=== PATIENT | female | born 1965 | race Caucasian/White ===

== ENCOUNTER 2016-06-02 21:28 | Emergency (ER) | payer SELFPAY ==
--- NOTE | 2016-06-02 23:46 | ED ORDER SUMMARY ---
..... Patient: NERI SANON OrderSheet [facility] VisitID: [id number] [place] [address] 50y, F Registration Date/Time: 06/02/2016 ORDER SHEET Weight: 72.5 kg (stated) Allergies: No Known Drug Allergy GENERAL ORDERS: CBC w Diff Urgent (22:12 06/02/2016 [place] GUZMAN) (Ack 22:15 Staci) (22:52 JRomanelli R.N.) CMP Urgent (22:12 06/02/2016 [place] GUZMAN) (Ack 22:15 Staci) (22:52 omanelli R.N.) UA-Culture if indicated Urgent (22:12 06/02/2016 [place] GUZMAN) (Ack 22:15 Staci) (23:23 Elli R.N.) Urine Urgent (22:12 06/02/2016 [place] GUZMAN) (Ack 22:15 Staci) (23:23 omanelli R.N.) Amylase Urgent (22:12 06/02/2016 [place] GUZMAN) (Ack 22:15 Staci) (22:52 omanelli R.N.) Lipase Urgent (22:12 06/02/2016 [place] GUZMAN) (Ack 22:15 Staci) (22:52 omanelli R.N.) Abd Series 2V Abd/1V Chest Urgent (23:24 06/02/2016 [place] GUZMAN) (Ack 23:25 Marcelina) (23:32 Binh) MEDICATION ORDERS: IV FLUIDS: IV NS : initial bolus none -, then 1000 mL/hr (NOW) (22:06 06/02/2016 Elli R.N. verbal order read back to [place] GUZMAN) (22:08 Elli R.N.) Zofran IV 4 mg (NOW) (22:08 06/02/2016 omanelli R.N. verbal order read back to [place] GUZMAN) (22:09 omanelli R.N.) IV#2 NS : initial bolus none -, then 1000 mL/hr (NOW) (22:58 06/02/2016 JRomanelli R.N. verbal order read back to [place] GUZMAN) (23:01 Elli Dick) ORDER SHEET NOTES: [Electronically signed by Rosendo Almendarez R.N. (00:49 06/03/2016)] [Electronically signed by Lux Badillo MD (00:58 06/03/2016)] [Electronically locked/signed by Rosendo Almendarez R.N. (00:49 06/03/2016)]
--- NOTE | 2016-06-02 23:46 | ED CLINICAL REPORT ---
Clinical Report - Physicians/Mid Levels [facility] [address] [place] [address] 06/02/2016 21:29 Patient: NERI SANON Time Seen: 21:47. Arrived- By private vehicle. Historian- patient. HISTORY OF PRESENT ILLNESS Chief Complaint: ABDOMINAL PAIN. This started several days ago and is still present. It was gradual in onset and has been intermittent and waxing/waning. At its maximum, severity described as severe. When seen in the E.D., severity described as moderate. It is described as cramping and diffuse and it is described as generalized in location. The patient has had nausea. She has had vomiting (today). The vomiting has occurred only once. No blood-tinged emesis or coffee-grounds emesis. (she says that she normally has bowel movements daily however she has not had one for the past several days. She also says that she has not been drinking much in the way of water). REVIEW OF SYSTEMS The patient has had constipation and constipation. Last bowel movement- he says that she has not had a normal bowel movement for several days. She passed a small amount of stool yesterday. No chills, fever, sweats, calf pain or chest pain. No cough, difficulty breathing, pedal edema, palpitations or black stools. No bloody stools, diarrhea or urinary problems. All systems otherwise negative, except as recorded above. PAST HISTORY Problems: Lumbar Strain. Back Pain. Additional Surgeries: . Tubal Ligation. 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 Medications: None. Allergies: No Known Drug Allergy. SOCIAL HISTORY Current every day heavy tobacco smoker (cigarette)- less than 1 pack per day. No alcohol use or drug use. FAMILY HISTORY Denies family medical history. ADDITIONAL NOTES The nursing notes have been reviewed. PHYSICAL EXAM Vital Signs: 06/02/2016 21:39 BP: 125/83. HR: 104. RR: 20. O2 saturation: 99%. Temp: 97.9 F. Pain level now: 7/10. Have been reviewed. Appearance: Alert. Eyes: Pupils equal, round and reactive to light. ENT: Pharynx normal. Neck: Normal inspection. Neck supple. CVS: Normal heart rate and rhythm. Heart sounds normal. Respiratory: No respiratory distress. Breath sounds normal. Abdomen: Soft. Mild tenderness in the left upper quadrant. Bowel sounds normal. No organomegaly. No mass. Back: Normal inspection. No CVA tenderness. Skin: Skin warm and dry. Normal skin color. Normal skin turgor. Extremities: Extremities exhibit normal ROM. No calf tenderness. No lower extremity edema. LABS, X-RAYS, AND EKG KUB: (IMPRESSION: 1. Negative acute abdominal series. Moderate stool.). Laboratory Tests: CBC w Diff: (JOSE: 06/02/2016 21:50) ( MsgRcvd 06/02/2016 22:23) Final results Test Result Flag Units (Reference) WHITE BLOOD COUNT 6.8 K/uL (4.5-11.5) RED BLOOD COUNT 5.35 H M/uL (4.00-5.20) HEMOGLOBIN 15.8 gm/dL (12.0-16.0) HEMATOCRIT 47.6 H % (36.0-46.0) MEAN CELL VOLUME 89 fL (80-100) MEAN CORPUSCULAR HGB 30 pg (26-34) MEAN CORPUSCULAR HGB CONC 33 g/dL (31-37) RED CELL DISTRIBUTION WIDTH 12.1 % (11.6-14.8) PLATELET COUNT 158 K/uL (150-400) NEUTROPHIL % 91.0 H % (50-75) LYMPH % 3.8 L % (25-40) MONO % 3.7 % (3-14) EOSINOPHIL % 1.4 % (0-4) BASOPHIL % 0.1 % (0-2) CMP: (JOSE: 06/02/2016 21:50) ( MsgRcvd 06/02/2016 22:29) Final results Test Result Flag Units (Reference) GLUCOSE 106 mg/dL (70-110) BUN 16 mg/dL (7-18) CREATININE 0.6 mg/dL (0.6-1.3) Estimated GFR >60 mL/min Estimated GFR- >60 mL/min Note: Persistent reduction over 3 months in eGFR<60 mL/min/1.73 m2 defines CKD. Patients with eGFR values>=60 mL/min/1.73 m2 may also have CKD if evidence ofpersistent proteinuria. Additional information may be foundat www.[email or web address].org. SODIUM 140 mmol/L (136-145) POTASSIUM 4.0 mmol/L (3.5-5.1) CHLORIDE 105 mmol/L (98-107) CARBON DIOXIDE 25 mmol/L (21-32) CALCIUM 8.1 L mg/dL (8.5-10.1) TOTAL PROTEIN 6.9 g/dL (6.4-8.2) ALBUMIN 3.4 g/dL (3.3-5.0) BILIRUBIN, TOTAL 0.7 mg/dL (0.0-1.0) ALKALINE PHOSPHATASE 69 U/L (46-116) AST (SGOT) 12 L U/L (15-37) ALT (SGPT) 25 U/L (12-78) LIPASE 113 U/L (73-393) AMYLASE 41 U/L (25-115) . PROGRESS AND PROCEDURES Course of Care: Patient is stable. Patient/family counseled. Old medical records reviewed. Disposition: Discharged. Condition: stable. CLINICAL IMPRESSION Constipation INSTRUCTIONS Drink plenty of fluids. Drink plenty of fluids. Warnings: GENERAL WARNINGS: Return or contact your physician immediately if your condition worsens or changes unexpectedly, if not improving as expected, or if other problems arise. Prescription Medications: Fleet Enema 4.5 oz: insert the enema into rectum gently and squeeze until nearly all the liquid is expelled as needed for constipation. Dispense one (1) bottle. No refills. Substitution is permissible. OTC Medications: Colace capsules (available over the counter): take according to label instructions. Magnesium Citrate (10-oz bottle) (available over the counter): take 1/2 bottle to achieve bowel movement. Repeat after 4 hours if needed. Understanding of the discharge instructions verbalized by patient. Follow-up with: [facility], , , [address], , [place], [id number] Follow up tomorrow if not better. (Electronically signed by Lux Badillo MD 06/03/2016 0:58) Addenda for NERI SANON VisitID: [id number] Date: 06/02/2016 06/03/2016 0:50 00:49 06/03/2016 Site #1 removed upon discharge. Catheter intact. Pressure dressing and bandaid applied. (Electronically signed by Rosendo Almendarez R.N. - 06/03/2016 0:50) 06/03/2016 0:50 Started bag #1 1000 mL IV Fluids IV#2 NS (Saline); at 1000 mL/hr over 60 minute(s) via site #1. Allergies verified and confirmed 5 rights. IV patency established. IV site checked: no pain, redness, or swelling. IV flushed thoroughly pre- and post-medication administration. IV Fluids IV#2 NS Discontinued: bag #1 completed. Total amount infused: 1000 mL. IV patency established. IV site checked: no pain, redness, or swelling. IV flushed thoroughly. (Electronically signed by Rosendo Almendarez R.N. - 06/03/2016 0:50) 06/03/2016 0:51 Started bag #1 1000 mL IV Fluids IV NS (Saline); at 1000 mL/hr over 60 minute(s) via site #1 IV Fluids IV NS Discontinued: bag #2 completed. Total amount infused: 1000 mL. IV patency established. IV site checked: no pain, redness, or swelling. IV flushed thoroughly. (Electronically signed by Rosendo Almendarez R.N. - 06/03/2016 0:51)
--- NOTE | 2016-06-02 23:46 | ED CLINICAL REPORT ---
Clinical Report - Physicians/Mid Levels [facility] [address] [place] [address] 06/02/2016 21:29 Patient: NERI SANON Time Seen: 21:47. Arrived- By private vehicle. Historian- patient. HISTORY OF PRESENT ILLNESS Chief Complaint: ABDOMINAL PAIN. This started several days ago and is still present. It was gradual in onset and has been intermittent and waxing/waning. At its maximum, severity described as severe. When seen in the E.D., severity described as moderate. It is described as cramping and diffuse and it is described as generalized in location. The patient has had nausea. She has had vomiting (today). The vomiting has occurred only once. No blood-tinged emesis or coffee-grounds emesis. (she says that she normally has bowel movements daily however she has not had one for the past several days. She also says that she has not been drinking much in the way of water). REVIEW OF SYSTEMS The patient has had constipation and constipation. Last bowel movement- he says that she has not had a normal bowel movement for several days. She passed a small amount of stool yesterday. No chills, fever, sweats, calf pain or chest pain. No cough, difficulty breathing, pedal edema, palpitations or black stools. No bloody stools, diarrhea or urinary problems. All systems otherwise negative, except as recorded above. PAST HISTORY Problems: Lumbar Strain. Back Pain. Additional Surgeries: . Tubal Ligation. 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 Medications: None. Allergies: No Known Drug Allergy. SOCIAL HISTORY Current every day heavy tobacco smoker (cigarette)- less than 1 pack per day. No alcohol use or drug use. FAMILY HISTORY Denies family medical history. ADDITIONAL NOTES The nursing notes have been reviewed. PHYSICAL EXAM Vital Signs: 06/02/2016 21:39 BP: 125/83. HR: 104. RR: 20. O2 saturation: 99%. Temp: 97.9 F. Pain level now: 7/10. Have been reviewed. Appearance: Alert. Eyes: Pupils equal, round and reactive to light. ENT: Pharynx normal. Neck: Normal inspection. Neck supple. CVS: Normal heart rate and rhythm. Heart sounds normal. Respiratory: No respiratory distress. Breath sounds normal. Abdomen: Soft. Mild tenderness in the left upper quadrant. Bowel sounds normal. No organomegaly. No mass. Back: Normal inspection. No CVA tenderness. Skin: Skin warm and dry. Normal skin color. Normal skin turgor. Extremities: Extremities exhibit normal ROM. No calf tenderness. No lower extremity edema. LABS, X-RAYS, AND EKG KUB: (IMPRESSION: 1. Negative acute abdominal series. Moderate stool.). Laboratory Tests: CBC w Diff: (JOSE: 06/02/2016 21:50) ( MsgRcvd 06/02/2016 22:23) Final results Test Result Flag Units (Reference) WHITE BLOOD COUNT 6.8 K/uL (4.5-11.5) RED BLOOD COUNT 5.35 H M/uL (4.00-5.20) HEMOGLOBIN 15.8 gm/dL (12.0-16.0) HEMATOCRIT 47.6 H % (36.0-46.0) MEAN CELL VOLUME 89 fL (80-100) MEAN CORPUSCULAR HGB 30 pg (26-34) MEAN CORPUSCULAR HGB CONC 33 g/dL (31-37) RED CELL DISTRIBUTION WIDTH 12.1 % (11.6-14.8) PLATELET COUNT 158 K/uL (150-400) NEUTROPHIL % 91.0 H % (50-75) LYMPH % 3.8 L % (25-40) MONO % 3.7 % (3-14) EOSINOPHIL % 1.4 % (0-4) BASOPHIL % 0.1 % (0-2) CMP: (JOSE: 06/02/2016 21:50) ( MsgRcvd 06/02/2016 22:29) Final results Test Result Flag Units (Reference) GLUCOSE 106 mg/dL (70-110) BUN 16 mg/dL (7-18) CREATININE 0.6 mg/dL (0.6-1.3) Estimated GFR >60 mL/min Estimated GFR- >60 mL/min Note: Persistent reduction over 3 months in eGFR<60 mL/min/1.73 m2 defines CKD. Patients with eGFR values>=60 mL/min/1.73 m2 may also have CKD if evidence ofpersistent proteinuria. Additional information may be foundat www.kidney.org. SODIUM 140 mmol/L (136-145) POTASSIUM 4.0 mmol/L (3.5-5.1) CHLORIDE 105 mmol/L (98-107) CARBON DIOXIDE 25 mmol/L (21-32) CALCIUM 8.1 L mg/dL (8.5-10.1) TOTAL PROTEIN 6.9 g/dL (6.4-8.2) ALBUMIN 3.4 g/dL (3.3-5.0) BILIRUBIN, TOTAL 0.7 mg/dL (0.0-1.0) ALKALINE PHOSPHATASE 69 U/L (46-116) AST (SGOT) 12 L U/L (15-37) ALT (SGPT) 25 U/L (12-78) LIPASE 113 U/L (73-393) AMYLASE 41 U/L (25-115) . PROGRESS AND PROCEDURES Course of Care: Patient is stable. Patient/family counseled. Old medical records reviewed. Disposition: Discharged. Condition: stable. CLINICAL IMPRESSION Constipation INSTRUCTIONS Drink plenty of fluids. Drink plenty of fluids. Warnings: GENERAL WARNINGS: Return or contact your physician immediately if your condition worsens or changes unexpectedly, if not improving as expected, or if other problems arise. Prescription Medications: Fleet Enema 4.5 oz: insert the enema into rectum gently and squeeze until nearly all the liquid is expelled as needed for constipation. Dispense one (1) bottle. No refills. Substitution is permissible. OTC Medications: Colace capsules (available over the counter): take according to label instructions. Magnesium Citrate (10-oz bottle) (available over the counter): take 1/2 bottle to achieve bowel movement. Repeat after 4 hours if needed. Understanding of the discharge instructions verbalized by patient. Follow-up with: [facility], , , [address], , [place], [address] Follow up tomorrow if not better. (Electronically signed by Lux Badillo MD 06/03/2016 0:58) Addenda for NERI SANON VisitID: [id number] Date: 06/02/2016 06/03/2016 0:50 00:49 06/03/2016 Site #1 removed upon discharge. Catheter intact. Pressure dressing and bandaid applied. (Electronically signed by Rosendo Almendarez R.N. - 06/03/2016 0:50) 06/03/2016 0:50 Started bag #1 1000 mL IV Fluids IV#2 NS (Saline); at 1000 mL/hr over 60 minute(s) via site #1. Allergies verified and confirmed 5 rights. IV patency established. IV site checked: no pain, redness, or swelling. IV flushed thoroughly pre- and post-medication administration. IV Fluids IV#2 NS Discontinued: bag #1 completed. Total amount infused: 1000 mL. IV patency established. IV site checked: no pain, redness, or swelling. IV flushed thoroughly. (Electronically signed by Rosendo Almendarez R.N. - 06/03/2016 0:50) 06/03/2016 0:51 Started bag #1 1000 mL IV Fluids IV NS (Saline); at 1000 mL/hr over 60 minute(s) via site #1 IV Fluids IV NS Discontinued: bag #2 completed. Total amount infused: 1000 mL. IV patency established. IV site checked: no pain, redness, or swelling. IV flushed thoroughly. (Electronically signed by Rosendo Almendarez R.N. - 06/03/2016 0:51)
--- NOTE | 2016-06-02 23:46 | ED ORDER SUMMARY ---
..... Patient: NERI SANON OrderSheet [facility] VisitID: [id number] [place] [address] 50y, F Registration Date/Time: 06/02/2016 ORDER SHEET Weight: 72.5 kg (stated) Allergies: No Known Drug Allergy GENERAL ORDERS: CBC w Diff Urgent (22:12 06/02/2016 [place] GUZMAN) (Ack 22:15 Staci) (22:52 JRomanelli R.N.) CMP Urgent (22:12 06/02/2016 [place] GUZMAN) (Ack 22:15 Staci) (22:52 omanelli R.N.) UA-Culture if indicated Urgent (22:12 06/02/2016 [place] GUZMAN) (Ack 22:15 Staci) (23:23 Elli R.N.) Urine Urgent (22:12 06/02/2016 [place] GUZMAN) (Ack 22:15 Staci) (23:23 omanelli R.N.) Amylase Urgent (22:12 06/02/2016 [place] GUZMAN) (Ack 22:15 Staci) (22:52 omanelli R.N.) Lipase Urgent (22:12 06/02/2016 [place] GUZMAN) (Ack 22:15 Staci) (22:52 omanelli R.N.) Abd Series 2V Abd/1V Chest Urgent (23:24 06/02/2016 [place] GUZMAN) (Ack 23:25 Marcelina) (23:32 Binh) MEDICATION ORDERS: IV FLUIDS: IV NS : initial bolus none -, then 1000 mL/hr (NOW) (22:06 06/02/2016 Elli R.N. verbal order read back to [place] GUZMAN) (22:08 Elli R.N.) Zofran IV 4 mg (NOW) (22:08 06/02/2016 omanelli R.N. verbal order read back to [place] GUZMAN) (22:09 omanelli R.N.) IV#2 NS : initial bolus none -, then 1000 mL/hr (NOW) (22:58 06/02/2016 JRomanelli R.N. verbal order read back to [place] GUZMAN) (23:01 Elli Dick) ORDER SHEET NOTES: [Electronically signed by Rosendo Almendarez R.N. (00:49 06/03/2016)] [Electronically signed by Lux Badillo MD (00:58 06/03/2016)] [Electronically locked/signed by Rosendo Almendarez R.N. (00:49 06/03/2016)]
--- NOTE | 2016-06-02 23:46 | ED NURSING NOTES ---
Clinical Report - Nurses [facility] [address] [place] [address] 06/02/2016 21:29 Patient: NERI SANON TRIAGE Triage time 21:39 Jun 02 2016. Acuity: LEVEL 3. Chief Complaint: ABDOMINAL PAIN, NAUSEA and VOMITING. Alert. JOAQUIN COMA SCORE: [place] Coma Scale: 15- eyes open spontaneously (4); best verbal response- oriented x 4 (5); best motor response- obeys commands (6). --21:46 Zay Hines R.N. 21:39 06/02/16. BP: 125/83. HR: 104. RR: 20. O2 saturation: 99% on room air. Temp: 97.9 F (oral). Pain level now: 7/10. Additional comments: Abdominal Pain. --21:46 Zay Hines R.N. Weight: 72.5 kg stated. Height/Length: 65 inches Per Patient. BMI: 26.6. --21:40 Zay Hines R.N. Medications None. --21:43 Zay Hines R.N. Medication/allergy information source: the patient. --21:46 Zay Hines R.N. Allergies No Known Drug Allergy. --21:44 Zay Hines R.N. History Arrived by private vehicle. Historian: family. Accompanied by family. ( Abdominal Pain associated with N/V and can't have a BM.). Onset. (about 3 days ago). She has had abdominal pain. Last oral intake by patient was snack (about 29 hours ago). Treatment [employer] TE[employer]ER: None. PAST MEDICAL HX: Immunizations: status is unknown. Last normal menstrual period- about 1 month ago. SOCIAL HX: Heavy tobacco smoker (cigarette)- less than 1 pack per day. No alcohol use or drug use. No recent travel. No infectious disease exposure. ABUSE ASSESSMENT: No report of abuse. FALL RISK ASSESSMENT: Fall risk assessment completed. No fall risk identified. NUTRITIONAL RISK ASSESSMENT: The nutritional risk assessment revealed no deficiencies. FUNCTIONAL ASSESSMENT: Functional assessment: no impairments noted. LEARNING NEEDS ASSESSMENT: The learning needs assessment revealed no barriers. SKIN INTEGRITY ASSESSMENT: Skin integrity risk assessment completed. No skin integrity risk identified. --21:46 Zay Hines R.N. PROBLEMS: Lumbar Strain. Back Pain. --21:44 Zay Hines R.N. ADDITIONAL SURGERIES: . Tubal Ligation. 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 --21:44 Zay Hines R.N. Interventions ID band on patient. To room. --21:46 Zay Hines R.N. PHYSICAL ASSESSMENT To room via wheelchair. GENERAL / NEURO / PSYCH: Alert. Oriented X 4. HEENT: Mucous membranes are pink. RESPIRATORY: Respirations not labored. Breath sounds within normal limits. CVS: Cardiac rhythm: (RRR). GI / : Abdominal tenderness. SKIN: Skin is warm and dry. --21:48 Zay Hines R.N. NURSING PROGRESS NOTES 21:58 06/02/2016 Site #1 started via IV in the right forearm with an 20g angiocath, with aseptic technique and good blood return; one attempt. Blood drawn: rainbow set. Labeled in the presence of the patient and sent to the lab. Saline lock flushed with 10 mL saline. --22:08 Zay Hines R.N. 22:03 06/02/2016 Started bag #1 1000 mL IV Fluids IV NS (Saline); at 1000 mL/hr over 60 minute(s) via site #1 --22:08 Zay Hines R.N. 22:08 06/02/2016 Zofran (Ondansetron HCl) IVP 4 mg given over 2 minute(s) via site #1. Allergies verified and confirmed 5 rights. IV patency established. IV site checked: no pain, redness, or swelling. IV flushed thoroughly pre- and post-medication administration. IVP given by RN. --22:09 Zay Hines R.N. 23:00 06/02/16. Patient gowned. Reassurance given. Patient identifiers checked. Call light placed in reach. Side rails up x 2. Bed placed in lowest position. Brakes of bed on. Patient ready for evaluation- chart flagged and ED physician notified. --23:25 Zay Hines R.N. 23:00 06/02/2016 IV Fluids IV NS Bag Change: bag #1 infused. Total amount infused: 1000. STARTED bag #2 (1000 mL) at 1000 mL/hr. Confirmed 5 rights. IV patency established. IV site checked: no pain, redness, or swelling. IV flushed thoroughly. --23:00 Zay Hines R.N. 23:01 06/02/2016 Started bag #1 1000 mL IV Fluids IV#2 NS (Saline); at 1000 mL/hr over 60 minute(s) via site #1. Allergies verified and confirmed 5 rights. IV patency established. IV site checked: no pain, redness, or swelling. IV flushed thoroughly pre- and post-medication administration. --23:01 Zay Hines R.N. 23:20 06/02/16. Checked patient name, birthdate and medical record number: patient confirmed. Instructions provided to collect clean catch urine and patient verbalized understanding. Clean catch urine collected with return of yellow-colored clear urine; odor is normal; sample sent to lab for urinalysis and culture. Specimen labeled in the presence of the patient. --23:26 Zay Hines R.N. DISPOSITION / DISCHARGE The goals identified in the patient's plan of care were met. No learning barriers present. Discharge instructions provided and reviewed with the patient. Reviewed medication(s) side effects, precautions, dosing and course information. The patient was discharged home and accompanied by family. She left the Emergency Department ambulatory and via private vehicle. Family member driving. FALL RISK ASSESSMENT: Fall risk assessment completed. No fall risk identified. --00:00 Rosendo Almendarez R.N. 23:59 06/02/16. BP: 121/66. HR: 96. RR: 16. O2 saturation: 100%. Temp: 98.2 F. Pain level now: 0/10. --00:00 Rosendo Almendarez R.N. Departure time: 1249 AM. --00:49 Rosendo Almendarez R.N. Locked/Released at 06/03/2016 0:49 by Rosendo Almendarez R.N.
--- NOTE | 2016-06-02 23:56 | DIAGNOSTIC IMAGING REPORT ---
PROCEDURE: XR ABD SERIES 2V ABD/1V CHEST INDICATION: CONSTIPATION, initial encounter TECHNIQUE: AP supine and upright views of the abdomen with single view of the chest. COMPARISON: None. FINDINGS: CHEST: Lungs are clear. Normal cardiovascular structures. Bony thorax is unremarkable. ABDOMEN: Bowel gas pattern is normal. Moderate stool. No soft-tissue masses or unusual calcifications. No evidence of free air. Osseous structures are unremarkable. IMPRESSION: 1. Negative acute abdominal series. Moderate stool.
--- NOTE | 2016-06-03 00:59 | ED MED RECONCILIATION SUMMARY ---
Patient: NERI SANON Medication Reconciliation Report [facility] VisitID: [id number] [address] [place] [address] 50y, F Registration Date/Time: 06/02/2016 Weight: 72.5 kg Height/Length: 65 in. BMI: 26.6 ALLERGIES: No Known Drug Allergy The patient's Home Medications are listed below: NONE. The source(s) of the original Home Medication information: patient The following Medications were given to the patient in the Emergency Department: IV NS IV Fluids bolus 0, then 1000 mL/hr, administered: 06/02/2016 10:03:00 PM Zofran [IVP] IVP 4 mg, administered: 06/02/2016 10:08:00 PM IV#2 NS IV Fluids bolus 0, then 1000 mL/hr, administered: 06/02/2016 11:01:00 PM The following Medications were prescribed to the patient: Colace capsules (available over the counter): take according to label instructions. -- Lux Badillo MD Magnesium Citrate (10-oz bottle) (available over the counter): take 1/2 bottle to achieve bowel movement. Repeat after 4 hours if needed. -- Lux Badillo MD Fleet Enema 4.5 oz: insert the enema into rectum gently and squeeze until nearly all the liquid is expelled as needed for constipation. Dispense one (1) bottle. No refills. Substitution is permissible. -- Lux Badillo MD
--- NOTE | 2016-06-03 00:59 | ED MAR SUMMARY ---
..... Medication Administration Record [facility] [address] [place] [place] [address] Patient: NERI SANON Visit ID: [id number] 50y, F Weight: 72.5 kg Height/Length: 65 in BMI: 26.6 ALLERGIES: No Known Drug Allergy Start 22:03 06/02/2016 Zay Hines R.N., Stop 00:51 06/03/2016 Rosendo Almendarez R.N. Medication Administered: IV NS (SALINE), Dose: IV Fluids over 60 minute(s), Rate: 1000 mL/hr, Dispensed: 1000 mL bag, Site: #1 right forearm. Medication Ordered: IV NS : initial bolus none -, then 1000 mL/hr (NOW). Given 22:08 06/02/2016 Zay Hines R.N. Medication Administered: ZOFRAN [IVP] (ONDANSETRON HCL), Dose: 4 mg IVP over 2 minute(s), Site: #1 right forearm. Medication Ordered: Zofran IV 4 mg (NOW). Start 23:01 06/02/2016 Zay Hines R.N., Stop 00:50 06/03/2016 Rosendo Almendarez RRutNRut Medication Administered: IV#2 NS (SALINE), Dose: IV Fluids over 60 minute(s), Rate: 1000 mL/hr, Dispensed: 1000 mL bag, Site: #1 right forearm. Medication Ordered: IV#2 NS : initial bolus none -, then 1000 mL/hr (NOW).
--- NOTE | 2016-06-03 00:59 | ED DISCHARGE INSTRUCTIONS ---
Patient: NERI SANON General Instructions [facility] VisitID: [id number] [address] [place] [address] 50y, F Registration Date/Time: 06/02/2016 Constipation INSTRUCTIONS Drink plenty of fluids. Drink plenty of fluids. Warnings: GENERAL WARNINGS: Return or contact your physician immediately if your condition worsens or changes unexpectedly, if not improving as expected, or if other problems arise. Prescription Medications: Fleet Enema 4.5 oz: insert the enema into rectum gently and squeeze until nearly all the liquid is expelled as needed for constipation. Dispense one (1) bottle. No refills. Substitution is permissible. OTC Medications: Colace capsules (available over the counter): take according to label instructions. Magnesium Citrate (10-oz bottle) (available over the counter): take 1/2 bottle to achieve bowel movement. Repeat after 4 hours if needed. Understanding of the discharge instructions verbalized by patient. Follow-up with: [facility], , , [address], , [place], [id number] Follow up tomorrow if not better. ADDITIONAL INFORMATION Constipation (Adult) Constipation is bowel movements that are less frequent than usual. Stools often become very hard and difficult to pass. This may lead to abdominal pain and bloating. It may also cause painful bowel movements. Constipation may be due to a diet thats low in fiber. Some medications, especially pain medications, can also cause it. Constipation may be treated with enemas, suppositories, laxatives or stool softeners. Your doctor will advise you which will work best for you. Follow the advice below to help avoid this problem in the future. Home Care Medication: Take any medicines as directed. Some laxatives are safe only for occasional use. Others can be taken on a regular basis. Talk to your doctor or pharmacist if you have questions. General Care: Prescription pain medications can cause constipation. If you are prescribed pain medications, ask the doctor whether you should also take a stool softener. A diet high in fiber with plenty of fluids helps to maintain regular, soft bowel movements. The following foods are good sources of dietary fiber: Cereals and breads: Whole grain cereal with bran, oatmeal, rolled oats, whole grain breads Fruits: All fruits (fresh and dried), raisins, prunes, apricots, berries, figs Vegetables: Any fresh vegetables, especially peas, broccoli, brussels sprouts, winter squash, green beans, cauliflower, mott beans, carrots Other: Popcorn, brown rice Drink plenty of water when you increase the amount of fiber you eat. Follow Up with your doctor or return to this facility if symptoms do not improve in the next few days. You may require further tests or a referral to a specialist. Get Prompt Medical Attention if any of the following occur: Fever over 100.4F (38C) Failure to resume normal bowel movements Increasing abdominal or back pain Nausea or vomiting Abdominal swelling Blood in the stool Weakness, dizziness or fainting Unexpected vaginal bleeding High Fiber Diet Fiber is present in all fruits, vegetables, cereals and grains. Fiber passes through the body undigested. A high fiber diet helps food move through the intestinal tract. The added bulk is helpful in preventing constipation. In people with diverticulosis it serves to clean out the pouches along the colon wall while preventing new ones from forming. A high fiber diet also reduces the risk of colon cancer, decreases blood cholesterol and prevents high blood sugar in people with diabetes. The foods listed below are high in fiber and should be included in your diet. If you are not used to high fiber foods, start with 1 or 2 foods from this list. Every 3-4 days add a new one to your diet until you are eating 4 high fiber foods per day. This should give you 20-35 Gm of fiber/day. It is also important to drink a lot of water when you are on this diet (6-8 glasses a day). Water causes the fiber to swell and increases the benefit. Foods High In Dietary Fiber: BREADS: Made with 100% whole wheat flour; raina, wheat or rye crackers; tortillas, bran muffins CEREALS: Whole grain cereal with bran (Chex, Raisin Bran, [place] Bran), oatmeal, rolled oats, granola, wheat flakes, brown rice NUTS: Any nuts FRUITS: All fresh fruits along with edible skins, (bananas, citrus fruit, mangoes, pears, prunes, raisins, apples, pineapple, apricot, melon, jams and marmalades), fruit juices (especially prune juice) VEGETABLES: All types, preferably raw or lightly cooked: especially, celery, eggplant, potatoes,spinach, broccoli, brussel sprouts, winter squash, carrots, cauliflower, soybeans, lentils, fresh and dried beans of all kinds OTHER: Popcorn, any spices Docusate Sodium Oral tablet What is this medicine? DOCUSATE (doc CUE sayt) is stool softener. It helps prevent constipation and straining or discomfort associated with hard or dry stools. How should I use this medicine? Take this medicine by mouth with a glass of water. Follow the directions on the label. Take your doses at regular intervals. Do not take your medicine more often than directed. Talk to your card placer regarding the use of this medicine in children. While this medicine may be prescribed for children as young as 2 years for selected conditions, precautions do apply. What side effects may I notice from receiving this medicine? Side effects that you should report to your doctor or health associate director career services as soon as possible: allergic reactions like skin rash, itching or hives, swelling of the face, lips, or tongue Side effects that usually do not require medical attention (report to your doctor or health associate director career services if they continue or are bothersome): diarrhea stomach cramps throat irritation What may interact with this medicine? mineral oil What if I miss a dose? If you miss a dose, take it as soon as you can. If it is almost time for your next dose, take only that dose. Do not take double or extra doses. Where should I keep my medicine? Keep out of the reach of children. Store at room temperature between 15 and 30 degrees C (59 and 86 degrees F). Throw away any unused medicine after the expiration date. What should I tell my health care provider before I take this medicine? They need to know if you have any of these conditions: nausea or vomiting severe constipation stomach pain sudden change in bowel habit lasting more than 2 weeks an unusual or allergic reaction to docusate, other medicines, foods, dyes, or preservatives or trying to get breast-feeding What should I watch for while using this medicine? Do not use for more than one week without advice from your doctor or health associate director career services. If your constipation returns, check with your doctor or health associate director career services. Drink plenty of water while taking this medicine. Drinking water helps decrease constipation. Stop using this medicine and contact your doctor or health associate director career services if you experience any rectal bleeding or do not have a bowel movement after use. These could be signs of a more serious condition. You have been given the following additional information: Constipation (Adult) Diet, High Fiber Docusate Sodium Oral tablet (Electronically signed by Lux Badillo MD 06/03/2016 0:58)
--- NOTE | 2016-06-03 00:59 | ED MAR SUMMARY ---
..... Medication Administration Record [facility] [address] [place] [address] Patient: NERI SANON Visit ID: [id number] 50y, F Weight: 72.5 kg Height/Length: 65 in BMI: 26.6 ALLERGIES: No Known Drug Allergy Start 22:03 06/02/2016 Zay Hines R.N., Stop 00:51 06/03/2016 Rosendo Almendarez R.N. Medication Administered: IV NS (SALINE), Dose: IV Fluids over 60 minute(s), Rate: 1000 mL/hr, Dispensed: 1000 mL bag, Site: #1 right forearm. Medication Ordered: IV NS : initial bolus none -, then 1000 mL/hr (NOW). Given 22:08 06/02/2016 Zay Hines R.N. Medication Administered: ZOFRAN [IVP] (ONDANSETRON HCL), Dose: 4 mg IVP over 2 minute(s), Site: #1 right forearm. Medication Ordered: Zofran IV 4 mg (NOW). Start 23:01 06/02/2016 Zay Hines R.N., Stop 00:50 06/03/2016 Rosendo Almendarez RRutNRut Medication Administered: IV#2 NS (SALINE), Dose: IV Fluids over 60 minute(s), Rate: 1000 mL/hr, Dispensed: 1000 mL bag, Site: #1 right forearm. Medication Ordered: IV#2 NS : initial bolus none -, then 1000 mL/hr (NOW).
--- NOTE | 2016-06-03 00:59 | ED MED RECONCILIATION SUMMARY ---
Patient: NERI SANON Medication Reconciliation Report [facility] VisitID: [id number] [address] [place] [address] 50y, F Registration Date/Time: 06/02/2016 Weight: 72.5 kg Height/Length: 65 in. BMI: 26.6 ALLERGIES: No Known Drug Allergy The patient's Home Medications are listed below: NONE. The source(s) of the original Home Medication information: patient The following Medications were given to the patient in the Emergency Department: IV NS IV Fluids bolus 0, then 1000 mL/hr, administered: 06/02/2016 10:03:00 PM Zofran [IVP] IVP 4 mg, administered: 06/02/2016 10:08:00 PM IV#2 NS IV Fluids bolus 0, then 1000 mL/hr, administered: 06/02/2016 11:01:00 PM The following Medications were prescribed to the patient: Colace capsules (available over the counter): take according to label instructions. -- Lux Badillo MD Magnesium Citrate (10-oz bottle) (available over the counter): take 1/2 bottle to achieve bowel movement. Repeat after 4 hours if needed. -- Lux Badillo MD Fleet Enema 4.5 oz: insert the enema into rectum gently and squeeze until nearly all the liquid is expelled as needed for constipation. Dispense one (1) bottle. No refills. Substitution is permissible. -- Lux Badillo MD
--- NOTE | 2016-06-03 00:59 | ED DISCHARGE INSTRUCTIONS ---
Patient: NERI SANON General Instructions [facility] VisitID: [id number] [address] [place] [address] 50y, F Registration Date/Time: 06/02/2016 Constipation INSTRUCTIONS Drink plenty of fluids. Drink plenty of fluids. Warnings: GENERAL WARNINGS: Return or contact your physician immediately if your condition worsens or changes unexpectedly, if not improving as expected, or if other problems arise. Prescription Medications: Fleet Enema 4.5 oz: insert the enema into rectum gently and squeeze until nearly all the liquid is expelled as needed for constipation. Dispense one (1) bottle. No refills. Substitution is permissible. OTC Medications: Colace capsules (available over the counter): take according to label instructions. Magnesium Citrate (10-oz bottle) (available over the counter): take 1/2 bottle to achieve bowel movement. Repeat after 4 hours if needed. Understanding of the discharge instructions verbalized by patient. Follow-up with: [facility], , , [address], , [place], [id number] Follow up tomorrow if not better. ADDITIONAL INFORMATION Constipation (Adult) Constipation is bowel movements that are less frequent than usual. Stools often become very hard and difficult to pass. This may lead to abdominal pain and bloating. It may also cause painful bowel movements. Constipation may be due to a diet thats low in fiber. Some medications, especially pain medications, can also cause it. Constipation may be treated with enemas, suppositories, laxatives or stool softeners. Your doctor will advise you which will work best for you. Follow the advice below to help avoid this problem in the future. Home Care Medication: Take any medicines as directed. Some laxatives are safe only for occasional use. Others can be taken on a regular basis. Talk to your doctor or pharmacist if you have questions. General Care: Prescription pain medications can cause constipation. If you are prescribed pain medications, ask the doctor whether you should also take a stool softener. A diet high in fiber with plenty of fluids helps to maintain regular, soft bowel movements. The following foods are good sources of dietary fiber: Cereals and breads: Whole grain cereal with bran, oatmeal, rolled oats, whole grain breads Fruits: All fruits (fresh and dried), raisins, prunes, apricots, berries, figs Vegetables: Any fresh vegetables, especially peas, broccoli, brussels sprouts, winter squash, green beans, cauliflower, mott beans, carrots Other: Popcorn, brown rice Drink plenty of water when you increase the amount of fiber you eat. Follow Up with your doctor or return to this facility if symptoms do not improve in the next few days. You may require further tests or a referral to a specialist. Get Prompt Medical Attention if any of the following occur: Fever over 100.4F (38C) Failure to resume normal bowel movements Increasing abdominal or back pain Nausea or vomiting Abdominal swelling Blood in the stool Weakness, dizziness or fainting Unexpected vaginal bleeding High Fiber Diet Fiber is present in all fruits, vegetables, cereals and grains. Fiber passes through the body undigested. A high fiber diet helps food move through the intestinal tract. The added bulk is helpful in preventing constipation. In people with diverticulosis it serves to clean out the pouches along the colon wall while preventing new ones from forming. A high fiber diet also reduces the risk of colon cancer, decreases blood cholesterol and prevents high blood sugar in people with diabetes. The foods listed below are high in fiber and should be included in your diet. If you are not used to high fiber foods, start with 1 or 2 foods from this list. Every 3-4 days add a new one to your diet until you are eating 4 high fiber foods per day. This should give you 20-35 Gm of fiber/day. It is also important to drink a lot of water when you are on this diet (6-8 glasses a day). Water causes the fiber to swell and increases the benefit. Foods High In Dietary Fiber: BREADS: Made with 100% whole wheat flour; raina, wheat or rye crackers; tortillas, bran muffins CEREALS: Whole grain cereal with bran (Chex, Raisin Bran, [place] Bran), oatmeal, rolled oats, granola, wheat flakes, brown rice NUTS: Any nuts FRUITS: All fresh fruits along with edible skins, (bananas, citrus fruit, mangoes, pears, prunes, raisins, apples, pineapple, apricot, melon, jams and marmalades), fruit juices (especially prune juice) VEGETABLES: All types, preferably raw or lightly cooked: especially, celery, eggplant, potatoes,spinach, broccoli, brussel sprouts, winter squash, carrots, cauliflower, soybeans, lentils, fresh and dried beans of all kinds OTHER: Popcorn, any spices Docusate Sodium Oral tablet What is this medicine? DOCUSATE (doc CUE sayt) is stool softener. It helps prevent constipation and straining or discomfort associated with hard or dry stools. How should I use this medicine? Take this medicine by mouth with a glass of water. Follow the directions on the label. Take your doses at regular intervals. Do not take your medicine more often than directed. Talk to your brand representative regarding the use of this medicine in children. While this medicine may be prescribed for children as young as 2 years for selected conditions, precautions do apply. What side effects may I notice from receiving this medicine? Side effects that you should report to your doctor or health medical care evaluation specialist as soon as possible: allergic reactions like skin rash, itching or hives, swelling of the face, lips, or tongue Side effects that usually do not require medical attention (report to your doctor or health medical care evaluation specialist if they continue or are bothersome): diarrhea stomach cramps throat irritation What may interact with this medicine? mineral oil What if I miss a dose? If you miss a dose, take it as soon as you can. If it is almost time for your next dose, take only that dose. Do not take double or extra doses. Where should I keep my medicine? Keep out of the reach of children. Store at room temperature between 15 and 30 degrees C (59 and 86 degrees F). Throw away any unused medicine after the expiration date. What should I tell my health care provider before I take this medicine? They need to know if you have any of these conditions: nausea or vomiting severe constipation stomach pain sudden change in bowel habit lasting more than 2 weeks an unusual or allergic reaction to docusate, other medicines, foods, dyes, or preservatives or trying to get breast-feeding What should I watch for while using this medicine? Do not use for more than one week without advice from your doctor or health medical care evaluation specialist. If your constipation returns, check with your doctor or health medical care evaluation specialist. Drink plenty of water while taking this medicine. Drinking water helps decrease constipation. Stop using this medicine and contact your doctor or health medical care evaluation specialist if you experience any rectal bleeding or do not have a bowel movement after use. These could be signs of a more serious condition. You have been given the following additional information: Constipation (Adult) Diet, High Fiber Docusate Sodium Oral tablet (Electronically signed by Lux Badillo MD 06/03/2016 0:58)
== END 2016-06-03 12:49 | disposition home or self-care (01) ==
LOC: ED SRH 21:28
DX: K59.00 Constipation, unspecified (principal); F17.210 Nicotine dependence, cigarettes, uncomplicated
CPT/HCPCS: 90004; 90100; 92235; 92530; 93070; 95059